=== PATIENT | female | born 1965 | race Asian ===

== ENCOUNTER → 2018-07-27 | Day surgery (SDC) | payer BC ==
[~2018-07-27] VITALS: Ht 154.9 cm; Wt 49.4 kg
[2018-07-27] VITALS (10 sets, daily range): BP systolic 88–111; BP diastolic 57–77
[~2018-07-27] MED LIST: LIDOCAINE/SOD BICARB 8.4% SYR ID ONE; NORMOSOL R SOLN(*) 1000 ML BAG 1,000 ML IV PRN; ONDANSETRON 4 MG/2 ML VIAL ONE; PROPOFOL EMUL(*) 10MG/ML 20 ML 40 ML ONE
--- NOTE | 2018-07-27 09:22 | NUR ---
0922- PT BROUGHT TO BAY 3, PT IN LL POSITION, UNRESPONSIVE AT THIS TIME, WILL CONTINUE TO MONITOR, PT ON 3LPM VIA HF NC, DECREASED TO 2LPM, VSS, SBAR REPORT FROM Delmy ARTEAGA RN AND DR. VERDUZCO 0927- PT EYES OPEN, MUMBLING, DROWSY, DR. VERMA AT BEDSIDE
--- NOTE | 2018-07-27 09:32 | NUR ---
0932- DECREASED O2 TO 1LPM VIA HF NC
--- NOTE | 2018-07-27 09:42 | NUR ---
0942- PT REPORTS STOMACH CRAMPS, ADVISED NORMAL FINDING AFTER COLONOSCOPY, PT UNDERSTANDS, REMAINS DROWSY, PT IN LL POSITION
--- NOTE | 2018-07-27 09:51 | NUR ---
0951- PT PLACED ON RA
--- NOTE | 2018-07-27 10:04 | NUR ---
1004- PT REMAINS SLEEPING IN LL POSITION
--- NOTE | 2018-07-27 10:07 | NUR ---
1007- PT AWAKE, REPOSITIONED ON BACK IN SF POSITION, TOLERATING SIPS OF WATER
--- NOTE | 2018-07-27 10:17 | NUR ---
1017- PT REPORTS MILD NAUSEA AND STOMACH CRAMPS
--- NOTE | 2018-07-27 10:39 | NUR ---
1039- IV ZOFRAN GIVEN FOR NAUSEA, SEE EMAR FOR DETAILS
--- NOTE | 2018-07-27 10:40 | NUR ---
1040- PT BACK TO SF POSITION IN BED AFTER IV ZOFRAN 1050- ORHTO VSS, PT REPORTS NAUSEA HAS IMPROVED AND STOMACH CRAMPS ARE BETTER, PT RATES 2/10 PAIN 1053- PT AMBULATORY TO RESTROOM, STABLE GAIT NOTED, PT REPORTS VOID X 1 WITHOUT DIFFICULTY 1057- D/C IV WITH CATH INTACT, PRESSURE DRESSING APPLIED WITH GAUZE AND COBAND 1102- PT DRESSED, JANNIE AT BEDSIDE 1103- REVIEWED D/C INSTRUCTIONS 1105- PT AMBULATORY TO ER FORREST ACCOMPANIED BY ZOEY VALDERRAMA AND KANDIS BIRD
== END ==
LOC: OR 00:29
PROVIDERS: ATTEND Family Medicine
DX: Z12.11 Encounter for screening for malignant neoplasm of colon (principal); D12.3 Benign neoplasm of transverse colon
CPT/HCPCS: 00811; 45380; 88305; J2405; J2704

== ENCOUNTER → 2018-07-28 | Outpatient (CLI) | payer BC ==
--- NOTE | 2018-07-28 10:50 | RADIOLOGY IMAGING REPORT ---
FACILITY: [facility] [place] PATIENT NAME: ADI JERNIGAN : [id number] MR: [id number] V: [id number] EXAM DATE: [id number] ORDERING PHYSICIAN: JOSEPH MELARA TECHNOLOGIST: Rhonda Craft PROCEDURE:BILATERAL DIGITAL SCREENING MAMMOGRAM WITH CAD ASSISTED INTERPRETATION & 3D TOMOSYNTHESIS COMPARISON:Prior mammograms 07/21/16, 12/03/14, 03/12/14, 02/05/14. INDICATIONS:SCREENING FINDINGS: The breasts are heterogeneously dense which can obscure small masses. The parenchymal pattern has remained stable allowing for difference in mammographic technique & patient positioning. DIAGNOSTIC CATEGORY 1--NEGATIVE. RECOMMENDATIONS: ROUTINE MAMMOGRAM AND CLINICAL EVALUATION. IMPRESSION: BIRADS 1: Negative. No significant abnormality is seen. Dictated by: Celestina Phan M.D. on 07/28/2018 at 9:20 Transcribed by: ELKE on 07/28/2018 at 10:12 Approved by: Celestina Phan M.D. on 07/28/2018 at 10:49 [facility]
== END ==
LOC: MAMO 02:04
PROVIDERS: ATTEND Physician Assistant
DX: Z12.31 Encounter for screening mammogram for malignant neoplasm of breast (principal)
CPT/HCPCS: 77063; 77067